=== PATIENT | female | born 2000 | race Caucasian/White ===

== ENCOUNTER → 2023-12-30 11:24 | Outpatient (REF) | payer OTHER, SELFPAY | LOC: PNTC 11:24 | PROVIDERS: ATTENDING PHYSICIAN Obstetrics & Gynecology | DX: O26.849 Uterine size-date discrepancy, unspecified trimester (principal) | CPT/HCPCS: 76816 ==

== ENCOUNTER 2024-01-11 16:25 | Inpatient (IN) | payer OTHER, SELFPAY ==
[2024-01-11 16:48] VITALS: BP 120/70; BMI 29.2
[2024-01-11 19:35] LABS: % Basophils 0.3 % (0-2); % Eosinophils 0.3 % (0-6); % Immature Granulocytes 0.5 % (0-0.5); % Lymphocytes 19.7 % (20.5-51.1); % Monocytes 6.8 % (1.7-9.3); % Neutrophils 72.4 % (42.2-75.2); Absolute Immature Granulocytes 0.1 10^3/uL (0-0.05); Absolute Lymphocytes 1.9 10^3/uL (1.2-3.4); Absolute Monocytes 0.7 10^3/uL (0.1-0.6); Hematocrit 31.8 % (37.0-47.0); Hemoglobin 11.4 g/dL (12.0-16.0); Mean Corp Hgb Conc. 35.8 g/dL (33.0-37.0); Mean Corpuscular Hgb 32.7 pg (27.0-31.0); Mean Corpuscular Volume 91.1 fL (81.0-99.0); Mean Platelet Volume 9.5 fL (7.4-10.4); Nucleated Red Blood Cells % 0 %; Platelet Count 223 10^3/uL (130-400); Red Blood Cell Count 3.49 10^6/uL (4.20-5.40); Red Cell Dist. Width 12.8 % (11.5-14.5); White Blood Cell Count 9.7 10^3/uL (4.8-10.8)
[2024-01-12 01:04] LABS: Cord ABG Comment CORD BLOOD
[2024-01-12 01:05] LABS: B.E. Cord ABG -3.6 mMOL/L; HCO3 Cord ABG 22.7 mmol/L; O2 Saturation % Cord ABG 63.7 %; PCO2 Cord ABG 44 mmHg; PO2 Cord ABG 33 mmHg; pH Cord ABG 7.32
[2024-01-12 01:08] LABS: B.E. Cord ABG -3.3 mMOL/L; HCO3 Cord ABG 26.2 mmol/L; O2 Saturation % Cord ABG 13.2 %; PCO2 Cord ABG 64 mmHg; PO2 Cord ABG 13 mmHg; pH Cord ABG 7.22
[2024-01-12] MEDS: TYLENOL 650 MG PO ×2 (12:23→20:12)
[2024-01-12] MEDS: MOTRIN 600 MG PO ×2 (12:23→20:12)
[2024-01-13 04:56] LABS: Hematocrit 33.4 % (37.0-47.0); Hemoglobin 11.9 g/dL (12.0-16.0)
[2024-01-13] MEDS: MOTRIN 600 MG PO (05:13)
[2024-01-13] MEDS: TYLENOL 650 MG PO (05:13)
[2024-01-14 17:18] LABS: Syphilis/T. pallidum Ab Reflex Negative (Negative)
== END 2024-01-13 11:31 | disposition home or self-care (01) | DRG 807 ==
LOC: LDRP 16:25
PROVIDERS: Obstetrics & Gynecology; ADMITTING PHYSICIAN Obstetrics & Gynecology; FAMILY PHYSICIAN Physician Assistant Medical
PROC: 10E0XZZ Delivery of Products of Conception, External Approach (ICD-10-PCS; 2024-01-12)
PROC: 0W8NXZZ Division of Female Perineum, External Approach (ICD-10-PCS; 2024-01-12)
DX: O69.1XX0 Labor and delivery complicated by cord around neck, with compression, not applicable or unspecified (principal); Z37.0 Single live birth; Z3A.38 38 weeks gestation of pregnancy
CPT/HCPCS: 82803; 85014; 85018; 85025; 86780; 86850; 86900; 86901

== ENCOUNTER → 2025-08-16 08:20 | Outpatient (REF) | payer OTHER, SELFPAY | LOC: PNTC 08:20 | PROVIDERS: ATTENDING PHYSICIAN Obstetrics & Gynecology | DX: Z34.92 Encounter for supervision of normal pregnancy, unspecified, second trimester (principal); Z36.3 Encounter for antenatal screening for malformations; Z36.86 Encounter for antenatal screening for cervical length | CPT/HCPCS: 76805; 76817 ==

== ENCOUNTER → 2025-10-08 08:25 | Outpatient (REF) | payer OTHER, SELFPAY | LOC: PNTC 08:25 | PROVIDERS: ATTENDING PHYSICIAN Obstetrics & Gynecology | DX: Z34.92 Encounter for supervision of normal pregnancy, unspecified, second trimester (principal) | CPT/HCPCS: 76816 ==